=== PATIENT | male | born 1980 | race Caucasian/White ===

== ENCOUNTER 2020-10-09 11:51 | Emergency (ER) | payer OTHER, SELFPAY ==
--- NOTE | ~2020-10-09 | XR_ITS ---
EXAMINATION: XR KNEE, LEFT CLINICAL INFORMATION: Injury COMPARISON: None TECHNIQUE: Four views of the left knee. FINDINGS: Bone alignment is normal. No definite fracture or dislocation is seen. There is slight cortical irregularity of the lateral femoral condyle questionable for osteochondritis desiccans or subchondral injury. Joint spaces are normal. There is no joint effusion. XR/XR knee LT 4V IMPRESSION: Cortical irregularity of the lateral femoral condyle questionable for osteochondritis desiccans or subchondral injury. Otherwise unremarkable exam.
[2020-10-09 12:10] VITALS: BP 110/71; PULSE 92; RESP 16; TEMP 36.1; O2SAT 97; BMI 31.4
[2020-10-09] MEDS: Ibuprofen 800 MG TABLET PO (13:42)
--- NOTE | 2020-10-09 13:54 | ED_ITS ---
HPI - Extremity Injury (Lower) General Chief Complaint: Extremity Injury, Lower Stated Complaint: lt knee inj Time Seen by Provider: 10/09/20 13:22 Source: patient Mode of arrival: ambulatory Limitations: no limitations History of Present Illness HPI Narrative: Patient presents to ED for left knee evaluation. Patient states this morning his left knee dislocated and he put it back in himself. Patient states multiple history of knee dislocation that he has put in by himself. 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 Patient denies falling to the ground or head trauma. Related Data Previous Rx's Medication Instructions Recorded naproxen 500 mg PO BID PRN #20 tab 10/09/20 Allergies Allergy/AdvReac Type Severity Reaction Status Date / Time No Known Allergies Allergy Unverified 05/16/20 19:46 [No Known Allergies*] Review of Systems Review of Systems: Yes all other systems are reviewed and are negative Constitutional: Constitutional: Reports as per HPI and Reports no additional constitutional complaints Eyes: Eyes: Reports as per HPI and Reports no additional eye complaints ENT: Reports system reviewed and no additional complaints, except as documented and Reports as per HPI Cardiovascular: Cardiovascular: Reports as per HPI and Reports no additional cardiovascular complaints Respiratory: Respiratory: Reports as per HPI and Reports no additional respiratory complaints Gastrointestinal: Gastrointestinal: Reports as per HPI and Reports no additional gastrointestinal complaints Genitourinary: Genitourinary: Reports no additional male genitourinary complaints and Reports as per HPI Musculoskeletal: Musculoskeletal: Reports no additional musculoskeletal complaints and Reports as per HPI Comments: Left knee pain Neurologic: Reports system reviewed and no additional complaints, except as documented and Reports as per HPI Psychiatric: Psychiatric: Reports no additional psychiatric complaints and Reports as per HPI [facility] Past Medical History Medical History (Updated 10/09/20 @ 14:03 by MEET Doan) No known health problems Social History Social History Advance Directives: Yes Advance Directives Information Provided: No Advance Directives on File: No Physical Exam Vital Signs: Vital Signs: Last Vital Signs Temp 97.0 F 10/09/20 12:10 Pulse 92 10/09/20 12:10 Resp 16 10/09/20 12:10 BP 110/71 10/09/20 12:10 Pulse Ox 97 10/09/20 12:10 Body Mass Index 31.4 Const: General: cooperative, healthy appearing, comfortable, no acute distress, well developed, alert, awake and Physically active Orientation /consciousness: patient oriented x3 HENMT: Head: Yes normal to inspection, Yes No palpable skull fracture present, Yes normocephalic, Yes atraumatic and No abrasion Eyes: General: appearance normal, both eyes and all related structures Neck: Neck: Yes normal visual inspection, Yes full ROM, Yes no lymphadenopathy, Yes no meningeal signs, Yes trachea midline, Yes supple and No tender Chest: Chest palpation & inspection: normal inspection of the chest and normal palpation of entire chest wall Resp: Effort & Inspection: normal respiratory effort and able to speak in complete sentences Cardio: Jugular venous distension: no JVD Heart sounds: S1 normal heart sound present and S2 normal heart sound present GI: Inspection: Yes normal to inspection and No abdominal wall ecchymosis Palpation (GI): Soft to palpation, not firm, nontender, no guarding and not rigid : General: No CVA tenderness and Yes no CVA tenderness Back/Spine/Pelvis: Back: no CVA tenderness, No CVA tenderness and No back tenderness Skin: General skin exam: no rashes or lesions noted and elasticity normal Neuro: General: patient oriented x3, no meningeal signs and CN's II-XI intact bilaterally Cranial nerves: Yes CN's II-XII intact bilaterally Extrem: Other: Left lower extremity: Left knee negative for any obvious deformity, redness, ecchymosis, swelling, or open wounds. Mild knee tenderness on palpation. Popliteal pulse intact. Negative for any swelling or redness left leg, foot, or thigh. Whole left lower extremity negative for any swelling or redness pitting edema, bluish discoloration, or calf pain. Motor and neuro exam intact Right lower extremity vascular/motor/neuro exam is intact Psych: Appearance: grossly normal, well kempt and not disheveled Course Course Course Narrative: Patient will be sent for left knee x-ray Reevaluation(s) Reevaluation #1: Left knee x-ray negative for any dislocation or fracture. Patient placed in knee brace and given crutches Time: 13:58 MDM - Extremity Injury (Lower) MDM Narrative Medical decision making narrative: Knee dislocation Discharge Plan Discharge Clinical Impression: Dislocated knee Patient Disposition: Home, Self-Care Instructions: Knee Pain (ED), Knee Dislocation (ED), Knee Immobilizer (ED) Additional Instructions: Return to the ED immediately for swelling, redness of the knee, pus discharge, warmth, fever, chills, redislocation, calf pain, or any other concerning symptoms. Prescriptions: New naproxen 500 mg tablet 500 mg PO BID PRN (Reason: pain) Qty: 20 RF: 0 Referrals: Dewayne Delacruz MD [Physician] - 2 days (Left knee dislocation. Patient has history of chronic left knee dislocation. Patient reduce knee on his own.) Stand Alone Forms: Work/School Release Interventions: ED Discharge Assessment Last Done: 10/09/20 14:25 Discharge Date/Time: 10/09/20 14:26 Print Language: Italian
== END 2020-10-09 14:26 | disposition home or self-care (01) ==
PROVIDERS: Emergency Provider Emergency Medicine Emergency Medical Services; PCP Family Medicine
DX: S83.005A Unspecified dislocation of left patella, initial encounter (principal); X58.XXXA Exposure to other specified factors, initial encounter; Y93.9 Activity, unspecified; Y92.9 Unspecified place or not applicable; Y99.9 Unspecified external cause status
CPT/HCPCS: 73564; 99283

== ENCOUNTER → 2020-10-11 13:03 | Outpatient (BNVA) | payer OTHER, SELFPAY | PROVIDERS: Visit Provider Physician Assistant ==

== ENCOUNTER → 2020-11-08 13:48 | Outpatient (BNVA) | payer OTHER, SELFPAY | PROVIDERS: PCP Family Medicine; Visit Provider Physician Assistant | DX: S83.005D Unspecified dislocation of left patella, subsequent encounter (principal) | CPT/HCPCS: 20610; J1040 ==

== ENCOUNTER → 2020-12-10 12:52 | Outpatient (BNVA) | payer OTHER, SELFPAY | PROVIDERS: PCP Family Medicine; Visit Provider Physician Assistant ==

== ENCOUNTER 2020-12-25 17:00 | Outpatient (RCR) | payer OTHER, SELFPAY ==
--- NOTE | 2020-10-30 19:15 | MHC.PT.EP ---
[facility] [place] Office [place] Office [place] Office [address] Blake Joe [address] [phone] F: [phone] F: [phone] F: [phone] F: [phone] Physical Therapy Plan of Care Date of Evaluation: 10/30/20 Date of Surgery: 1992 LEFT KNEE Diagnosis: LEFT PATELLAR DISLOCATION ON 10/09/20 Assessment: 39 YO MALE REF TO PT S/P LEFT PATELLAR DISLOCATION 10/09/20 AFTER TURNING TO SIT AT HOME- OF SIGNIF, OVER THE PAST FEW YEARS Pt HAS HAD A H/O OF 3 DISLOC W RIGHT PATELLA AND 2-3 ON THE LEFT ( SURGERY Lt PATELLA IN 1996). HE GARCIA S(+) CREPITUS AND LATERAL PATELLAR DRIFT LIDIA KNEES.Pt PRESENTS W A LEFT KNEE SLEEVE SUPPORT W STRAPS AND PATELLAR BUTTRESS- NO AD; HE WAS OOW x 2 WKS AND HAS SINCE RTW. 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 Pt CURRENTLY HAS LIMITED ROM Lt LE, (+) PELVIC ASYM, H/O RIGHT SCIATICA, (+) WEAKNESS IN Lt > Rt LEs/ CORE REGION, TISSUE TIGHTNESS IN Lt ITB/ GASTROC, LATERAL PATELLA, AND RESIDUAL PERIPATELLAR PAIN. FUNCTIONALLY, Pt IS GUARDED AND APPREHENSIVE W HIGHER LEVEL FUNCTIONAL TASKS- HE HAS DECR SINGLE LIMB BALANCE/ STABILITY/ PROPRIOCEPTION- LIMITED STAIR MGMT, LIFTING FROM LOWER LEVELS- SQUATTING, IN/OUT OF VEHICLES/ STEPPING DUE TO PAIN AND HIS H/O PRIOR DISLOCATIONS. Pt WOULD BENEFIT FROM PT TO ADDRESS STRENGTH, SOFT TISSUE MOBILITY, PROPRIOC/ NEUROFEEDBACK LOOP/ STABILITY, STATIC AND DYNAMIC BALANCE TASKS -> WORK SIMUL. Frequency and Duration: The patient will be seen 2x WK x 5 WKS Short Term Goals: DECR Pt'S Lt KNEE PAIN TO 2-3/10 AND IMPROVE AAROM Lt KNEE AND PROM TO FULL KNEE EXTEN PER TOLERANCE IN 2 WKS ENCOURAGE IMPROVED QUADRICEP FUNCTION AND MORE REGULAR GAIT MECH IN 3 WKS MINIMIZE Lt KNEE Jt EFFUSION IN 3 WKS Skilled Nursing Goals: Pt DMEON FULL ROM Lt KNEE AND WFL FLEXIB IN PROX LEs/TRUNK IN 5 WKS Pt INDEP W HEP TO ADDRESS STRENGTH, MUSC/ FUNCTIONAL ENDURANCE, AND DYNAMIC BALANCE IN 5 WKS Pt DEMON 3:3 PROPER BODY MECH W SIMUL ADLs/ WORK TASKS IN 5 WKS Treatment Plan: Modalities to reduce pain, spasms and effusion. Manual therapy to restore motion and function. Therapeutic exercise to improve strength and flexibility. Neuromuscular re-education for posture and balance. Therapeutic activities to return to functional activities of daily living. Electronically signed by: Ana Sandra, PT Please sign and return to therapist. Thank you for your referral.
--- NOTE | 2020-12-25 18:20 | MHC.PT.DC ---
[facility] [place] Office [place] Office [place] Office [address] Blake Joe [address] [phone] F: [phone] F: [phone] F: [phone] F: [phone] Physical Therapy Discharge Report Diagnosis: LEFT PATELLAR DISLOCATION ON 10/09/20 Date of Surgery: 1992 LEFT KNEE Date of Evaluation: 10/30/20 Date of Discharge: 12/25/20 Treatments to Date: 16 Cancellations to Date: 0 No Shows to Date: 0 Discharge Status: Achieved Goals Improved Function Independent with HEP Discharge Summary: Pt MET PT GOALS AT THIS TIME AND IS READY FOR D/C W HEP-HE DEMON IMPROVED STRENGTH AND STABILITY IN ILDIA LEs/ TRUNK- HIS LEFT KNEE PAIN HAS DECR SIGNIF AND HIS FUNCTIONAL MOBILITY ELISABETH IS MUCH IMPROVED- HE DENIES BUCKLING/ EPISODIC INSTABILITY IN EITHER KNEE. HIS LEFT SCORE IMPROVED FROM 50/80 AT EVAL TO 74/80 AT D/C. Electronically signed by: Ana Sandra,PT Please sign and return to therapist. Thank you for your referral.
== END 2020-12-25 18:21 | disposition other institution (70) ==
LOC: HO.PTCHIC 17:00
PROVIDERS: PCP Family Medicine; Visit Provider Physician Assistant
DX: S83.005A Unspecified dislocation of left patella, initial encounter (principal)
CPT/HCPCS: 97014; 97110; 97112; 97140; 97162

== ENCOUNTER 2021-08-07 17:00 | Outpatient (RCR) | payer OTHER, SELFPAY | END 2021-09-15 10:57 | disposition home or self-care (01) | LOC: HO.PTCHIC 17:00 | PROVIDERS: PCP Family Medicine; Visit Provider Family Medicine | DX: M54.50 Low back pain, unspecified (principal); S83.005A Unspecified dislocation of left patella, initial encounter | CPT/HCPCS: 97110; 97140; 97161; 97164; 97530 ==

== ENCOUNTER 2023-07-29 16:00 | Outpatient (RCR) | payer OTHER, SELFPAY | END 2023-08-31 08:44 | disposition home or self-care (01) | LOC: HO.PTCHIC 16:00 | PROVIDERS: Visit Provider Student in an Organized Health Care Education/Training Program | DX: M47.816 Spondylosis without myelopathy or radiculopathy, lumbar region (principal) | CPT/HCPCS: 97110; 97161 ==

== ENCOUNTER 2025-04-02 08:29 | Outpatient (REF) | payer OTHER, SELFPAY ==
--- NOTE | ~2025-04-02 | XR_ITS ---
EXAMINATION: XR SHOULDER, LEFT CLINICAL INFORMATION: M25.512 - Pain in left shoulder COMPARISON: None available. TECHNIQUE: AP external rotation, Grashey, scapular Y, and axillary views of the left shoulder. FINDINGS: Acute cortical disruption or malalignment. No lytic or blastic lesions. No metallic or radiopaque foreign body. No subcutaneous emphysema. XR/XR shoulder LT min 2V IMPRESSION: Normal x-ray, left shoulder. Electronically signed by: Jay Meade MD 04/02/2025 03:06 PM EDT
--- OUTSIDE RECORDS SUMMARY | 2025-04-02 08:50 | XMS_ITS | Clinical Summary ---
Author Organization [facility] Address [address] [place] [address] Phone Care Team Providers Care Software Applications Architect Name Role Phone Dayne Griffith DO Primary Care Provider [phone] Allergies No known active allergies Medications traZODone (DESYREL) 100 MG tablet Take 100 mg by mouth nightly at bedtime. Active citalopram (CELEXA) 10 MG tablet Take 10 mg by mouth daily. Active buPROPion (WELLBUTRIN XL) 300 MG ER 24 hr tablet Take 300 mg by mouth daily. Active betamethasone, augmented, (DIPROLENE AF) 0.05 % cream Apply topically 2 (two) times a day. Active meclizine (ANTIVERT) 25 mg tablet Take 1 tablet (25 mg total) by mouth 3 (three) times a day as needed for dizziness. 10 tablet 1 Active Additional Information Patient not taking.Reported on 04/08/2022 atorvastatin (LIPITOR) 10 MG tablet Take by mouth. 1 Active predniSONE (DELTASONE) 50 MG tablet Take 1 tablet (50 mg total) by mouth daily. 5 tablet 2 Active Additional Information Patient not taking.Reported on 07/07/2024 Active Problems No known active problems Social History Tobacco Use Types Packs/Day Years [...] on file Sexual Orientation Not on file Last Filed Vital Signs Vital Sign Reading Time Taken Comments Blood Pressure 110/74 07/07/2024 8:48 AM EST Pulse 98 07/07/2024 8:48 AM EST Temperature 36.9 C (98.4 F) 07/07/2024 8:48 AM EST Respiratory Rate 16 07/07/2024 8:48 AM EST Oxygen Saturation 97% 07/07/2024 8:48 AM EST Inhaled Oxygen Concentration - - Weight 120.2 kg (265 lb) 04/08/2022 2:47 PM EDT Height 195.6 cm (6' 5 ) 04/08/2022 2:47 PM EDT Body Mass Index 31.42 04/08/2022 2:47 PM EDT Plan of Treatment Health Maintenance Due Date Last Done Comments LIPID PANEL 1978 DEPRESSION SCREENING 1990 HEPATITIS C SCREENING 1996 HIV ONE-TIME SCREENING (18-6 5 YEARS) 1996 SCREENING FOR DIABETES 2013 COLOGUARD 11/19/2023 COLONOSCOPY 11/19/2023 COLORECTAL CANCER SCREENING 11/19/2023 FIT TEST 11/19/2023 FOBT 11/19/2023 SIGMOIDOSCOPY 11/19/2023 VIRTUAL COLONOSCOPY 11/19/2023 COVID-19 VACCINE (4 - 2023-2 5 season) 2024 08/26/2021, 01/08/2021, 12/11/2020 Adult Td,Tdap Booster 02/13/2030 02/14/2020 SMOKING STATUS SCREENING (On ce After 26 Yrs) Completed 07/07/2024 HEPATITIS A VACCINES Aged Out No long er eligible based on patient's age to complete this topic HIB VACCINES Aged Out No longer eligi ble based on patient's age to complete this topic MENINGOCOCCAL VACCINES (ACWY) Aged Out No longer eligible based on patient's age to complete this topic MENINGOCOCCAL VACCINES (B) Aged Out N o longer eligible based on patient's age to complete this topic PNEUMOCOCCAL VACCINES (0-49 years) Aged Out No longer eligible b ased on patient's age to complete this topic Medical Devices Not on file Insurance [place] [address] [place] [address] [place] [address] [facility] [facility] [place] [address] [address] Care Teams Software Applications Architect Relationship Specialty Start Date End Date Dayne Griffith DO [address] [place] [address] [email or web address] PCP - General Family Medicine 06/01/24 Additional Source Comments The information contained in this document represents components of the legal health record. It is not the complete legal health record.[facility]
== END 2025-04-02 08:30 | disposition home or self-care (01) ==
LOC: HO.HOSX 08:29
PROVIDERS: Visit Provider Physician Assistant
DX: M25.512 Pain in left shoulder (principal); M77.8 Other enthesopathies, not elsewhere classified
CPT/HCPCS: 20610; 73030; J1010; J2003

== ENCOUNTER → 2025-04-02 14:31 | Outpatient (BNV) | payer OTHER, SELFPAY | PROVIDERS: Visit Provider Radiology Diagnostic Radiology | DX: M25.512 Pain in left shoulder (principal) | CPT/HCPCS: 73030 ==

== ENCOUNTER 2025-04-02 15:05 | Outpatient (AMB) | payer OTHER, SELFPAY ==
--- NOTE | 2025-04-02 15:08 | MHC.OFFVIS ---
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 Patient reports constant pain throughout his entire shoulder. States his pain has been present for about 1-2 months. His most discomfort comes with driving and sleeping. Denies numbness or tingling. No previous treatment. Denies injury. 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 Denies specific injury but states the pain has been present for approximately 2 months. He has significant discomfort with sleeping at night and discomfort when he reaches his arm up overhead. He does have an extensive history of spine arthritis and receives ablasions. [facility] Medical History High cholesterol No known health problems Surgical History History of arthroscopy of left knee Family History Mother No problems noted. Father No problems noted. 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 Mild tenderness over the AC joint. Negative cross-body adduction. Negative Antlers's negative Ramirez. Tenderness over the periscapular region. Office Procedures AMB Joint Injection/Aspiration Joint Injection/Aspiration Primary Site: left shoulder Prep: site was prepped using aseptic technique, ethochloride spray was applied and injection warnings given Injected: 80 mg of, DepoMedrol, with 8 mL of, 1% plain lidocaine and in the subcromial space Approach Used: posterolateral Coding - Glenohumeral/Tronchanteric Bursa/Intraarticular Procedure code (CPT) selection complete Results Reviewed Results Reviewed: X-rays of the left shoulder obtained today and reviewed by me are significant for type 2 acromion. Joint space well preserved. Assessment & Plan Assessment & Plan (1) Left shoulder tendonitis: Code(s): M77.8 - Other enthesopathies, not elsewhere classified Category: Medical Plan: We discussed options today which include some modification of activity. I did order a course of physical therapy and gave him the contact information so he can make an appointment. We also discussed the benefits of steroid injections how this can help with the inflammation. He did consent to move forward with left shoulder injection today which the patient tolerated well. The patient will continue to increase activities as tolerated and if symptoms arise or there is any concerns over the next 6-8 weeks he can contact our office otherwise follow up as needed. Orders: Orders XR shoulder LT min 2V Today M25.512 - Pain in left shoulder Coding Level of Care Code New Pt Level 3 (60986) Complex EM visit Add On G2211 Diagnoses Left shoulder tendonitis M77.8 CPT Codes Coding - Joint 7: 43437 - Glenohumeral/Tronchanteric Bursa/Intraarticular ([id number])
== END 2025-04-02 16:03 | disposition home or self-care (01) ==
LOC: HO.HOS 15:05
PROVIDERS: Visit Provider Physician Assistant
DX: M77.8 Other enthesopathies, not elsewhere classified (principal)
CPT/HCPCS: 20610; 99203

== ENCOUNTER 2025-08-23 10:06 | Emergency (ER) | payer OTHER, SELFPAY ==
--- OUTSIDE RECORDS SUMMARY | 2008-09-24 | XMS_ITS | Encounter Summary ---
Author Organization [facility] Address [address] [place] [address] Phone Care Team Providers Care Film Composer Name Role Phone Unavailable Primary Care Provider Unavailabl e Encounter Details Date Type Department Care Team (Late st Contact Info) Description 09/24/2008 Hospital Encounter [facility],Outside Imaging [address] [place], [place] [id number] Unknown, Unknown, Social History Tobacco Use Types Packs/Day Years Used Date Smoking Tobacco: Never Smokeless Tobacco: Never Alcohol Use Standard Drinks/Week Comments Yes 0 (1 standard drink = 0.6 oz pur e alcohol) Education Answer Date Recorded Are you interested in more education? Not on traci e 12/25/2022 Are you concerned about learning? Not on file 12/25/2022 No 12/25/2022 No 12/25/2022 Digital Access Answer Date Recorded No 01/22/2023 No 01/22/2023 Reliable internet access at home? Not on file 01/22/2023 Device with a working camera? Not on file Sex and Gender Information Value Date Recorded Sex Assigned at Not on file Legal Sex Male 9:24 PM EDT Gender Identity Not on file Sexual Orientation Not on file documented as of this encounter Plan of Treatment Not on file documented as of this encounter Procedures Procedure Name Priority Date/Time Associated Diagnosis Comments XR LOWER EXTREMITY OUTSIDE (NO INTERPRETATION) Routine 09/24/2008 12:00 AM EST documented in this encounter Results * XR Lower Extremity Outside (No Interpretation) (09/24/2008 12:00 AM EST) Narrative SYSTEMGENERATED, DOCUMENTATION - 06/01/2024 9:12 AM EDT This study is for PACS storage only and not for interpretation. us Unknown Unknown MD [facility] W/OUT INT ERPRETATION Final Result documented in this encounter Visit Diagnoses Not on filedocumented in this encounter Additional Health Concerns Infection Onset Date Last Indicated Resolved Time CoV-Risk 07/07/2024 07/07/2024 07/18/2024 1:21 AM EST documented as of this encounter Additional Source Comments The information contained in this document represents components of the legal health record. It is not the complete legal health record.[facility]
--- OUTSIDE RECORDS SUMMARY | 2011-12-04 23:00 | XMS_ITS | Encounter Summary ---
Author Organization [facility] Address [address] [place] [address] Phone Care Team Providers Care Waiter/Waitress Captain Name Role Phone Unavailable Primary Care Provider Unavailabl e Encounter Details Date Type Department Care Team (Late st Contact Info) Description 12/05/2011 Hospital Encounter [facility],Outside Imaging [address] [place], [place] [id number] Unknown, Unknown, Social History Tobacco Use Types [...] XR LOWER EXTREMITY OUTSIDE (NO INTERPRETATION) Routine 12/05/2011 12:00 AM EDT documented in this encounter Results * XR Lower Extremity Outside (No Interpretation) (12/05/2011 12:00 AM EDT) Narrative SYSTEMGENERATED, DOCUMENTATION - 06/01/2024 9:12 AM [...] It is not the complete legal health record.[facility]
--- NOTE | ~2025-08-23 | XR_ITS ---
CLINICAL HISTORY: severe back pain 3 views lumbar spine Comparison: None provided Findings: Straightening of the normal lumbar lordosis. No acute fractures or dislocation. Facet arthropathy at L5-S1. IMPRESSION: No acute osseous abnormality. Facet arthropathy at L5-S1. This document has been electronically signed by: Marianna Anderson MD on 08/23/2025 12:42:12
[2025-08-23 10:08] VITALS: BP 146/72; PULSE 108; RESP 18; TEMP 36.6; O2SAT 99; BMI 30.2
--- OUTSIDE RECORDS SUMMARY | 2025-08-23 10:34 | XMS_ITS | Clinical Summary ---
Author Organization [facility] Address [address] [facility] [address] [address] [facility] [address] [place] [address] Phone Care Team Providers Care Program Director/Traffic Director Name Role Phone Dayne Griffith DO Primary Care Provider [phone] Allergies No known active allergies Medications traZODone [...] HIV ONE-TIME SCREENING (18-6 5 YEARS) 1996 COLOGUARD 11/19/2023 COLONOSCOPY 11/19/2023 COLORECTAL CANCER SCREENING 11/19/2023 FIT TEST 11/19/2023 FOBT 11/19/2023 SIGMOIDOSCOPY 11/19/2023 VIRTUAL COLONOSCOPY 11/19/2023 INFLUENZA VACCINE (#1) 2025 , 06/14/2020 COVID-19 VACCINE (2024-2 6 season) 2025 08/26/2021, 01/08/2021, 12/11/2020 Adult Td,Tdap Booster 02/13/2030 [...] topic Medical Devices Not on file Insurance [facility] [place] [address] [place] [address] CHOICE [facility] CHOICE Care Teams Program Director/Traffic Director Relationship Specialty Start Date End Date Dayne Griffith DO [address] [place] [address] [email or web address] PCP - General Family Medicine 06/01/24 Additional Source Comments The information contained in this document represents components of the legal health record. It is not the complete legal health record.[facility]
--- NOTE | 2025-08-23 10:38 | ED_ITS ---
HPI - Back Pain/Injury General Chief Complaint: Back Pain/Injury Stated Complaint: severe back pain since friday 06/08!! Time Seen by Provider: 08/23/25 10:38 Source: patient Mode of arrival: ambulatory Limitations: no limitations History of Present Illness ED Provider: DR. Lam HPI Narrative: 44-year-old male PMHx significant for arthritis of the back with chronic back pain, patient was recently strenuously working at home required to keep bending and kneeling for few hours the next day patient started to have this severe pain. No fever, no chills, no dysuria, no frequency urination, no hematuria, no urinary incontinence or retention, no stool incontinence, no history of IV drug abuse, no weakness, no numbness. Related Data Home Medications ?Medication ?Instructions ?Recorded ?Confirmed betamethasone dipropionate 0.05 % appl topical 1 04/02/25 topical cream tizanidine 2 mg tablet 2 - 4 mg PO BEDTIME PRN musc le 04/02/25 04/02/25 spasm Previous Rx's ?Medication ?Instructions ?Recorded cyclobenzaprine 10 mg tablet 10 mg PO TID PRN muscle s pasm #10 08/23/25 tabs ibuprofen 600 mg tablet 600 mg PO Q8H PRN pain #10 t abs 08/23/25 Allergies Allergy/AdvReac Type Severity Reaction Status Date / Time No Known Allergies (No Known Allergy Verified 08/23/25 10:09 Allergies*) Review of Systems Review of Systems: all other systems are reviewed and are negative Constitutional: Reports as per HPI and Reports no additional constitutional complaints Eyes: Reports as per HPI and Reports no additional eye complaints Reports system reviewed and no additional complaints, except as documented Cardiovascular: Reports as per HPI and Reports no additional cardiovascular complaints Respiratory: Reports as per HPI and Reports no additional respiratory complaints Gastrointestinal: Reports as per HPI and Reports no additional gastrointestinal complaints Genitourinary: Reports no additional female genitourinary complaints Musculoskeletal: Reports no additional musculoskeletal complaints Skin/Breast: Reports system reviewed and no additional complaints, except as docu Psychiatric: Reports no additional psychiatric complaints Endocrine: Reports no additional endocrine complaints Hematologic/Lymphatic: Reports no additional hematologic/lymphatic complaints Allergic/Immunologic: Reports no additional allergic/immunologic complaints Reports system reviewed and no additional complaints, except as documented and Reports Abnormal speech present [facility] Past Medical History Medical History High cholesterol No known health problems Surgical History History of arthroscopy of left knee Family History Family History Mother No problems noted. Father No problems noted. Social History Social History Alcohol intake: never Advance Directives: No Advance Directives Information Provided: No Do you have a plan to hurt others: No Plan Current occupational status: employed Current occupation: wild [employer] works at the [employer] - right handed Physical Exam Vital Signs: Vital Signs: Last Vital Signs Temp 98 F 08/23/25 10:08 Pulse 108 H 08/23/25 10:08 Resp 18 08/23/25 10:08 BP 146/72 H 08/23/25 10:08 Pulse Ox 99 08/23/25 10:08 O2 Del Method Room Air 08/23/25 10:08 BMI result Body Mass Index 30.2 Vital signs have been reviewed and appear to be correct. Blood pressure elevated. Heart rate normal. Respiratory rate normal. Temperature normal. Oxygen saturation normal. Appearance: Alert. Oriented X3. in mild acute distress secondary to back pain Head: Normal external exam. Normocephalic. Atraumatic. No An signs noted. No raccoon eyes noted Eyes: PERRLA. EOMI. Conjunctiva and sclera normal. Eyelids normal. ENT: TM's Normal. Pharynx normal. Uvula midline. Moist mucous membranes. No trismus noted. No drooling noted. No muffled voice noted. Neck: Normal inspection. Neck supple. FROM. No adenopathy. Thyroid Normal. No meningeal signs. No neck mass noted. CVS: Normal heart rate and rhythm. Heart sound normal. No murmurs noted. Pulses normal throughout. Respiratory: No respiratory distress. Painless inspiration. Breath sounds normal. No wheezes/rales/rhonchi noted. Chest nontender. No accessory muscle usage noted or decreased air movement noted. Abdomen: Soft and nontender. Bowel sounds normal in all 4 quadrants. No distention noted. No organomegaly noted. No visible injury noted. Back: No CVA tenderness. diffuse tenderness to the lumbar spine, no step-off, no deformity, paraspinous muscle spasm. Skin: Skin warm and dry. Normal skin color. Normal skin turgor. No rashes/lesions/lacerations noted. Extremities: No lower extremity edema. Extremities exhibit normal range of motion. Extremities nontender. Neuro: Oriented X 3. Cranial nerve exam: II-XII are grossly intact No motor deficit. No sensory deficit. Reflexes normal. Course Reevaluation(s) Reevaluation #1: 44-year-old male with back pain, patient received Toradol, Dilaudid, and muscle relaxant then patient started to have vasovagal response became d iaphoretic, nauseous feeling dizzy patient was observed in the emergency department until he felt better, patient now is able to tolerate p.o. in with no nausea or vomiting, patient is walking with a normal gait. Improvement of patient's pain, able to ambulate in the ED. No dizziness, patient is AAO x3, normal neuro exam will be okay to drive home. X-ray of the back reveals degenerative disease with no acute fracture. Will discharge. Time: 15:30 Medications Administered Discontinued Medications Generic Name Dose Route Start Last Admin Trade Name Freq PRN Reason Stop Dose Admin Cyclobenzaprine HCl 10 mg 08/23/25 10:46 08/23/25 11:18 Cyclobenzaprine Hcl 10 Mg Tablet PO 08/23/25 10:47 10 mg ONCE ONE Administration Hydromorphone HCl 2 mg 08/23/25 10:45 08/23/25 11:18 Hydromorphone Hcl 2 Mg/Ml Vial IM 08/23/25 10:46 2 mg ONCE ONE Administration Protocol Ketorolac Tromethamine 60 mg 08/23/25 10:45 08/23/25 11:18 Ketorolac Tromethamine 60 Mg/2 Ml Vial IM 08/23/25 10:46 60 mg ONCE ONE Administration Medical Decision Making Differential Diagnosis Differential Diagnoses: The differential diagnosis associated with the presentation includes ( Kidney infection, urinary infection, muscular back pain, cauda equina syndrome.) Admission/Observation Consideration of admission/observation: Escalation of care including admission/observation considered Independent Interpretation I performed an independent interpretation of an: Plain X-Ray ( Lumbar spine: No acute findings.) Radiology Impression Discussion of test interpretation with radiology: I have reviewed the radiologist's reading. Discharge Plan Discharge Clinical Impression: Strain of lumbar region Patient Disposition: Home, Self-Care Instructions: Muscle Strain (ED) Prescriptions: New ibuprofen 600 mg tablet 600 mg PO Q8H PRN (Reason: pain) Qty: 10 0RF cyclobenzaprine 10 mg tablet 10 mg PO TID PRN (Reason: muscle spasm) Qty: 10 0RF No Action betamethasone dipropionate 0.05 % cream topical tizanidine 2 mg tablet 2 - 4 mg PO BEDTIME PRN (Reason: muscle spasm) Stand Alone Forms: Work/School Release Print Language: Sami
[2025-08-23 15:55] VITALS: BP 124/85; PULSE 69; RESP 16; TEMP -17.7; TEMP 0; O2SAT 95
== END 2025-08-23 15:56 | disposition home or self-care (01) ==
PROVIDERS: Emergency Provider Emergency Medicine
DX: S39.012A Strain of muscle, fascia and tendon of lower back, initial encounter (principal); X50.1XXA Overexertion from prolonged static or awkward postures, initial encounter; Y93.9 Activity, unspecified; Y92.9 Unspecified place or not applicable; Y99.8 Other external cause status
CPT/HCPCS: 72100; 96372; 99283; 99284; J1171; J1885

== ENCOUNTER → 2025-08-23 10:45 | Outpatient (BNV) | payer OTHER, SELFPAY | PROVIDERS: Emergency Provider Emergency Medicine; Visit Provider Student in an Organized Health Care Education/Training Program | DX: M46.96 Unspecified inflammatory spondylopathy, lumbar region (principal); M54.59 Other low back pain | CPT/HCPCS: 72100 ==